=== PATIENT | male | born 1985 | race Caucasian/White ===

== ENCOUNTER 2017-12-10 22:36 | Emergency (ER) | payer OTHER ==
[~2017-12-10] VITALS: Ht 182.9 cm; Wt 121.0 kg
[2017-12-10 22:41] VITALS: BP 145/100; PULSE 84; RESP 16; TEMP 98.5; O2SAT 98
[2017-12-10] MEDS ORDERED: PREV15CA20 PO (22:45)
--- NOTE | 2017-12-10 23:29 | PD ---
HPI Chief Complaint: Respiratory Symptoms Time Seen by Provider: 23:22 Travel History International Travel<30 days: No Contact w/Intl Traveler<30days: No Traveled to known affect area: No History of Present Illness HPI 32-year-old male presents to the emergency department for evaluation of intermittent shortness of breath and total body tingling. According the patient since approximately 9 PM he has felt tingling in his hands and feet and short of breath. Patient states he was awake and was same symptoms on Sunday morning at 4 AM and went to a local hospital in [place] where he lives and had extensive evaluation was told he had reflux esophagitis. Patient does take Prevacid. Patient states she was not sleeping or resting at the time of onset of symptoms this evening. Patient [place] and was doing his routine activities does not report any exposure to new inhalants or allergens and does not use a respirator at his place of work as this is not required. No history of respiratory illness. No chest pain no hemoptysis no productive cough no fever or chills. No report of upper or lower extremity weakness no altered mentation no speech disturbance no near syncope or syncope. Patient notes only mild shortness of breath this time. No personal history or family history of clotting disorder. Patient denies personal history of hypertension dyslipidemia CAD or diabetes but is a non-smoker. [facility]LY [facility] Past Medical History Narrative Medical Cortez's palsy gerd; tobacco use; nursing notes reviewed Medical other: Yes (BELLS PALSY ) Past Surgical History Other Surgery: Yes (VASECTOMY ) Social History Alcohol Use: No Tobacco Use: Yes Substance Use: No Allergies-Medications (Allergen,Severity, Reaction): Coded Allergies: No Known Allergies (Unverified , 12/10/17) Reported Meds & Prescriptions Reported Meds & Active Scripts Active Reported Prevacid (Lansoprazole) 15 Mg Capdr 15 Mg PO DAILY Review of Systems Except as stated in HPI: all other systems reviewed are Neg General / Constitutional: No: Fever Eyes: No: Visual changes HENT: No: Headaches, Lightheadedness Cardiovascular: No: Chest Pain or Discomfort Respiratory: Positive: Shortness of Breath, No: Pleuritic Pain Gastrointestinal: No: Nausea, Vomiting, Abdominal Pain Genitourinary: No: Flank Pain Musculoskeletal: No: Myalgias, Arthralgias, Weakness, Cramping, Edema, Pain Skin: No Rash Neurologic: Positive: Paresthesia, No: Weakness, Dizziness, Syncope, Focal Abnormalities, Coordination Problem Psychiatric: No: Anxiety Hematologic/Lymphatic: No: Lymph Node Enlargement Physical Exam Narrative GENERAL: Well-developed well-nourished male no acute distress or respiratory distress; GCS 15 SKIN: Warm and dry. HEAD: Normocephalic. EYES: No scleral icterus. No injection or drainage. NECK: Supple, trachea midline. No JVD or lymphadenopathy. CARDIOVASCULAR: Regular rate and rhythm without murmurs, gallops, or rubs. RESPIRATORY: Breath sounds equal bilaterally. No accessory muscle use. GASTROINTESTINAL: Abdomen soft, non-tender, nondistended. MUSCULOSKELETAL: No cyanosis, or edema. BACK: Nontender without obvious deformity. No CVA tenderness. Data Data Last Documented VS Vital Signs Date Time Temp Pulse Resp B/P (MAP) Pulse Ox O2 Delivery O2 Flow Rate FiO2 12/11/17 01:47 98 21 12/11/17 00:04 18 Room Air 12/10/17 22:41 98.5 84 145/100 (115) Orders Orders Complete Blood Count With Diff (12/10/17 23:23) Comprehensive Metabolic Panel (12/10/17 23:23) B-Type Natriuretic Peptide (12/10/17 23:23) D-Dimer (12/10/17 23:23) Magnesium (Mg) (12/10/17 23:23) Ckmb (Isoenzyme) Profile (12/10/17 23:23) Troponin I (12/10/17 23:23) Iv Access Insert/Monitor (12/10/17 23:23) Ecg Monitoring (12/10/17 23:23) Oximetry (12/10/17 23:23) Oxygen Administration (12/10/17 23:23) Chest, Single Ap (12/10/17 23:23) Sodium Chloride 0.9% Flush (Ns Flush) (12/10/17 23:30) Thyroid Stimulating Hormone (12/10/17 23:23) CKMB (12/10/17 23:00) CKMB% (12/10/17 23:00) Albuterol-Ipratropium Neb (Duoneb Neb) (12/11/17 01:30) Labs Laboratory Tests Test 12/10/17 23:00 White Blood Count 11.0 TH/MM3 Red Blood Count 5.31 MIL/MM3 Hemoglobin 16.5 GM/DL Hematocrit 46.5 % Mean Corpuscular Volume 87.6 FL Mean Corpuscular Hemoglobin 31.0 PG Mean Corpuscular Hemoglobin Concent 35.4 % Red Cell Distribution Width 12.7 % Platelet Count 266 TH/MM3 Mean Platelet Volume 6.8 FL Neutrophils (%) (Auto) 59.5 % Lymphocytes (%) (Auto) 28.7 % Monocytes (%) (Auto) 6.6 % Eosinophils (%) (Auto) 4.3 % Basophils (%) (Auto) 0.9 % Neutrophils # (Auto) 6.6 TH/MM3 Lymphocytes # (Auto) 3.2 TH/MM3 Monocytes # (Auto) 0.7 TH/MM3 Eosinophils # (Auto) 0.5 TH/MM3 Basophils # (Auto) 0.1 TH/MM3 CBC Comment DIFF FINAL Differential Comment D-Dimer Quantitative (PE/DVT) LESS THAN 0.19 MG/L FEU Blood Urea Nitrogen 10 MG/DL Creatinine 1.20 MG/DL Random Glucose 88 MG/DL Total Protein 8.5 GM/DL Albumin 4.6 GM/DL Calcium Level 9.2 MG/DL Magnesium Level 1.8 MG/DL Alkaline Phosphatase 103 U/L Aspartate Amino Transf (AST/SGOT) 34 U/L Alanine Aminotransferase (ALT/SGPT) 73 U/L Total Bilirubin 0.7 MG/DL Sodium Level 143 MEQ/L Potassium Level 3.7 MEQ/L Chloride Level 105 MEQ/L Carbon Dioxide Level 28.6 MEQ/L Anion Gap 9 MEQ/L Estimat Glomerular Filtration Rate 71 ML/MIN Total Creatine Kinase 102 U/L Creatine Kinase MB 1.0 NG/ML Troponin I LESS THAN 0.02 NG/ML B-Type Natriuretic Peptide 8 PG/ML Thyroid Stimulating Hormone 3rd Gen 1.840 uIU/ML MDM Medical Decision Making Medical Screen Exam Complete: Yes Emergency Medical Condition: Yes Medical Record Reviewed: Yes Interpretation(s) EKG normal sinus rhythm rate [address] elevation injury pattern or ectopy noted Last Impressions Chest X-Ray 12/10/17 7272 Signed Impressions: Service Date/Time: Sunday, December 10, 2017 23:38 - CONCLUSION: No acute disease. Skyler Locke MD CBC & BMP Diagram 12/10/17 23:00 Total Protein 8.5 H, Albumin 4.6, Calcium Level 9.2, Magnesium Level 1.8, Alkaline Phosphatase 103, Aspartate Amino Transf (AST/SGOT) 34, Alanine Aminotransferase (ALT/SGPT) 73, Total Bilirubin 0.7 Vital Signs Date Time Temp Pulse Resp B/P (MAP) Pulse Ox O2 Delivery O2 Flow Rate FiO2 12/11/17 01:47 98 21 12/11/17 00:04 18 97 Room Air 12/10/17 23:51 98 Room Air 12/10/17 22:41 98.5 84 16 145/100 (115) 98 Differential Diagnosis Dyspnea, reactive airways disease, PE, CHF, pneumonia, atypical chest pain, arrhythmia, electrolyte disturbance, thyroid dysfunction Narrative Course Patient placed on equipment monitor phototypesetting with continuous pulse oximetry IV access obtained specimens collected and sent for resulting EKG sinus rhythm no acute ST elevation injury pattern or ectopy noted D-dimer less than 0.19 records from [facility] indicates patient had a negative CT pulmonary angiogram yesterday no indication for repeat CT angiogram at this time After Zabrina bourgeois lung sounds are improved and patient is clinically and symptomatically improved and stable for outpatient management Diagnosis Primary Impression: Dyspnea Additional Impressions: Reactive airway disease GERD (gastroesophageal reflux disease) Referrals: Nutrient Management Specialist call for appointment Patient Instructions: General Instructions Additional Instructions: Use Zantac 150 mg 2 tablets once daily for 10 days Complete course of steroid as prescribed Use rescue inhaler as needed Discontinue tobacco Follow-up with your primary care provider Return to the emergency department for any concerns or change in condition Med/Other Pt SpecificInfo: Prescription(s) given Scripts Albuterol 18 GM Inh (Ventolin Hfa 18 GM Inh) 90 Mcg/Act Aer 2 PUFF INH Q4-6H Y for SHORTNESS OF BREATH, #1 INHALER 0 Refills Prov: Jeanette Blank MD 12/11/17 Methylprednisolone Dosepak (Medrol Dosepak) 4 Mg Dspk 4 MG PO DIRECTED, #1 DSPK 0 Refills Per Pharmacist direction Prov: Jeanette Blank MD 12/11/17 Disposition: 01 DISCHARGE HOME Condition: Stable Jeanette Blank MD Dec 10, 2017 23:29
[2017-12-10] MEDS ORDERED: SODIUM CHLORIDE 0.9% FLUSH 10 ML FLUSH IVF PRN (23:30)
--- NOTE | 2017-12-10 23:56 | RADRPT ---
EXAM DATE/TIME: 12/10/2017 23:38 [facility] COMPARISON: No previous studies available for comparison. INDICATIONS : Short of breath. MEDICAL HISTORY : None. SURGICAL HISTORY : None. ENCOUNTER: Initial ACUITY: 1 day PAIN SCORE: 0/10 LOCATION: Bilateral chest FINDINGS: A single view of the chest demonstrates the lungs to be symmetrically aerated without evidence of mas s, infiltrate or effusion. The cardiomediastinal contours are unremarkable. Osseous structures are intact. CONCLUSION: No acute disease. Skyler Locke MD on December 10, 2017 at 23:53 Board Certified Radiologist. This report was verified electronically.
[2017-12-11 00:04] VITALS: RESP 18; O2SAT 97
[2017-12-11 00:07] LABS: AUTOMATED NEUTROPHIL # 6.6 TH/MM3 (1.8-7.7); BASOPHIL # 0.1 TH/MM3 (0-0.2); BASOPHIL % 0.9 % (0.0-2.0); EOSINOPHIL # 0.5 TH/MM3 (0-0.4); EOSINOPHIL % 4.3 % (0.0-4.0); HEMATOCRIT 46.5 % (39.0-51.0); HEMOGLOBIN 16.5 GM/DL (13.0-17.0); LYMPH % 28.7 % (9.0-44.0); LYMPHOCYTE # 3.2 TH/MM3 (1.0-4.8); MEAN CELL VOLUME 87.6 FL (80.0-100.0); MEAN CORPUSCULAR HGB CONC 35.4 % (32.0-36.0); MEAN PLATELET VOLUME 6.8 FL (7.0-11.0); MONO % 6.6 % (0.0-8.0); MONOCYTE # 0.7 TH/MM3 (0-0.9); NEUT % 59.5 % (16.0-70.0); PLATELET COUNT 266 TH/MM3 (150-450); RED BLOOD COUNT 5.31 MIL/MM3 (4.50-5.90); RED CELL DISTRIBUTION WIDTH 12.7 % (11.6-17.2)
[2017-12-11 00:24] LABS: ALBUMIN 4.6 GM/DL (3.4-5.0); ALT (GPT) 73 U/L (12-78); AST (GOT) 34 U/L (15-37); BICARBONATE 28.6 MEQ/L (21.0-32.0); BLOOD UREA NITROGEN 10 MG/DL (7-18); CALCIUM 9.2 MG/DL (8.5-10.1); CHLORIDE 105 MEQ/L (98-107); GLOMERULAR FILTRATION RATE 71 ML/MIN (>89); GLUCOSE,RANDOM 88 MG/DL (74-106); MAGNESIUM 1.8 MG/DL (1.5-2.5); SODIUM (NA) 143 MEQ/L (136-145)
[2017-12-11 00:34] LABS: ALKALINE PHOSPHATASE 103 U/L (45-117); TOTAL BILIRUBIN ADULT 0.7 MG/DL (0.2-1.0); TOTAL PROTEIN 8.5 GM/DL (6.4-8.2); TROPONIN I LESS THAN 0.02 NG/ML (0.02-0.05)
[2017-12-11] MEDS ORDERED: RESP: ALBUTEROL 2.5 MG/IPRATROPIUM 0.5 MG NEB (SCH) NEB ONE (01:30)
[2017-12-11 01:47] VITALS: O2SAT 98
[2017-12-11] MEDS ORDERED: MEDR4PAK PO (01:53)
[2017-12-11] MEDS ORDERED: VENTAER INH (01:53)
--- NOTE | 2017-12-11 16:09 | EKG ---
Date Performed: 12/10/2017 Time Performed: 23:09:29 PTAGE: 32 years EKG: Sinus rhythm NORMAL ECG NO PREVIOUS TRACING DOCTOR: Stuart Rico Interpretating Date/Time 12/11/2017 16:07:45
== END 2017-12-11 02:21 | disposition home or self-care (01) ==
LOC: NEPC 22:36
DX: J45.909 Unspecified asthma, uncomplicated (principal); K21.0 Gastro-esophageal reflux disease with esophagitis; R20.2 Paresthesia of skin; Z72.0 Tobacco use; Z79.899 Other long term (current) drug therapy
CPT/HCPCS: 71045; 80053; 82550; 82552; 83735; 83880; 84443; 84484; 85025; 85379; 93005; 94664; 99285